=== PATIENT | male | born 1960 | race Caucasian/White ===

== ENCOUNTER 2021-10-14 13:22 | Emergency (ER) | payer OTHER ==
[2021-10-14 13:37] VITALS: TEMP 99.3; BMI 29.8
[2021-10-14] MEDS ORDERED: ONDANSETRON 4 MG/2 ML VIAL IVPUSH ONE (14:14)
[2021-10-14] MEDS ORDERED: SODIUM CHLORIDE 0.9% 500 ML INFUS.BAG IV ONE (14:14)
[2021-10-14] MEDS ORDERED: ONDANSETRON 4 MG/2 ML VIAL ONE (14:18)
[2021-10-14 16:03] LABS: HEMOGLOBIN 14.9 GM/dL (11.7-16.9); MCH 32.8 pg (25.7-33.7); MCHC 34.7 g/dl (32.0-35.9); MEAN CELL VOLUME 94.4 fl (80-96); MEAN PLT VOLUME 9.2 fl (7.5-11.1); PLATELET COUNT 95 10^3/uL (134-434); RBC 4.56 M/mm3 (4.00-5.60); RDW 12.6 % (11.9-15.9)
[2021-10-14 16:11] LABS: EPI CELLS 12 /uL (0-25.1); HYALINE CASTS 5 /uL (0-3.1); PH,URINE 5.5 (5.0-8.0); URINE APPEARANCE CLOUDY; URINE BACTERIA 12 /uL (0-1359); URINE BILIRUBIN 1+ (NEGATIVE); URINE COLOR DK YELLOW; URINE GLUCOSE (UA) 1+ (NEGATIVE); URINE KETONE 1+ (NEGATIVE); URINE LEUK ESTERASE NEGATIVE (NEGATIVE); URINE NITRITE NEGATIVE (NEGATIVE); URINE PROTEIN 2+ (NEGATIVE); URINE RBC 9 /uL (0-23.9); URINE WBC 22 /uL (0-25.8)
[2021-10-14 16:23] LABS: CALCIUM 8.2 mg/dL (8.5-10.1)
[2021-10-14 16:24] LABS: ALBUMIN 3.8 g/dl (3.4-5.0)
[2021-10-14 16:29] LABS: TOT PROT 7.7 g/dl (6.4-8.2)
[2021-10-14 18:00] LABS: ANISOCYTOSIS 0; MACROCYTOSIS 0; PLATELET ESTIMATE DECREASED
[2021-10-14 18:02] VITALS: BP 130/76; PULSE 86
== END 2021-10-14 18:01 | disposition home or self-care (01) ==
LOC: JER 13:22
PROC: 3E033GC Introduction of Other Therapeutic Substance into Peripheral Vein, Percutaneous Approach (ICD-10-PCS; principal; 2021-10-14)
DX: B34.9 Viral infection, unspecified (principal)
CPT/HCPCS: 0241U-QW; 36415; 71046-TC-FY; 80053; 81003; 85025; 87086; 99284-25